=== PATIENT | male | born 1980 | race Caucasian/White ===

== ENCOUNTER 2018-02-12 19:14 | Emergency (ER) | payer OTHER ==
[~2018-02-12] VITALS: Ht 180.3 cm; Wt 108.5 kg
[2018-02-12 20:09] VITALS: BP 131/91; PULSE 64; RESP 18; TEMP 99; O2SAT 99
[2018-02-13 00:07] VITALS: BP 124/77; PULSE 53; RESP 18; TEMP 97.9; O2SAT 96
[2018-02-13 00:58] LABS: AUTOMATED NEUTROPHIL # 3.3 TH/MM3 (1.8-7.7); BASOPHIL % 0.6 % (0.0-2.0); EOSINOPHIL # 0.3 TH/MM3 (0-0.4); EOSINOPHIL % 3.5 % (0.0-4.0); HEMATOCRIT 44.8 % (39.0-51.0); LYMPH % 39.5 % (9.0-44.0); LYMPHOCYTE # 2.8 TH/MM3 (1.0-4.8); MEAN CELL VOLUME 84.9 FL (80.0-100.0); MEAN CORPUSCULAR HEMOGLOBIN 30.3 PG (27.0-34.0); MEAN CORPUSCULAR HGB CONC 35.7 % (32.0-36.0); MEAN PLATELET VOLUME 8.2 FL (7.0-11.0); MONO % 10.1 % (0.0-8.0); MONOCYTE # 0.7 TH/MM3 (0-0.9); NEUT % 46.3 % (16.0-70.0); PLATELET COUNT 223 TH/MM3 (150-450); RED BLOOD COUNT 5.28 MIL/MM3 (4.50-5.90); RED CELL DISTRIBUTION WIDTH 12.4 % (11.6-17.2); WHITE BLOOD COUNT 7.2 TH/MM3 (4.0-11.0)
[2018-02-13 01:07] LABS: INTERNATIONAL NORMALIZED RATIO 1.1 RATIO
[2018-02-13 01:08] VITALS: BP_SYST 108; BP_SYST 114; BP_SYST 123; BP_DIAS 60; BP_DIAS 69; BP_DIAS 76; RESP 16
--- NOTE | 2018-02-13 01:13 | RADRPT ---
EXAM DATE: 02/13/2018 12:48 AM EDT AGE/SEX: 37 years / Male INDICATIONS: Evaluate for free air, inferior chest pain. CLINICAL DATA: This is the patient's initial encounter. Patient reports that signs and symptoms have been present for 1 day and indicates a pain score of 2/10. MEDICAL/SURGICAL HISTORY: None. None. COMPARISON: No prior [place] exams available for comparison. FINDINGS: A single AP view of the chest demonstrates the lungs to be symmetrically aerated without evidence of mass, infiltrate or effusion. The cardiomediastinal contours are unremarkable. Osseous structures a re intact. CONCLUSION: No acute intrathoracic disease. No evidence of free air. Electronically signed by: Murphy Nguyen MD 02/13/2018 1:12 AM EDT
[2018-02-13 01:22] LABS: ALKALINE PHOSPHATASE 71 U/L (45-117); TOTAL BILIRUBIN ADULT 0.7 MG/DL (0.2-1.0); TOTAL PROTEIN 7.1 GM/DL (6.4-8.2); TROPONIN I LESS THAN 0.02 NG/ML (0.02-0.05)
[2018-02-13 01:26] LABS: ALBUMIN 3.9 GM/DL (3.4-5.0); ALT (GPT) 58 U/L (12-78); AST (GOT) 23 U/L (15-37); BICARBONATE 27.4 MEQ/L (21.0-32.0); BLOOD UREA NITROGEN 12 MG/DL (7-18); CALCIUM 8.7 MG/DL (8.5-10.1); CHLORIDE 104 MEQ/L (98-107); CREATININE 1.13 MG/DL (0.60-1.30); GLOMERULAR FILTRATION RATE 73 ML/MIN (>89); GLUCOSE,RANDOM 79 MG/DL (74-106); MAGNESIUM 2.1 MG/DL (1.5-2.5); SODIUM (NA) 142 MEQ/L (136-145)
[2018-02-13] MEDS ORDERED: KETOROLAC TROMETHAMINE 30 MG/ML (IVP) VIAL IV PUSH ONE (01:30)
[2018-02-13] MEDS ORDERED: SODIUM CHLOR 0.9% 1000 ML INJ 1,000 ML IV ONE ×2 (01:30→03:15)
[2018-02-13] MEDS ORDERED: IOHEXOL 350 MG/ML 10 ML VIAL (for RAD DIAG) IVCONTRAST ONE (01:49)
--- NOTE | 2018-02-13 01:55 | PD ---
HPI Chief Complaint: Abdominal Pain Time Seen by Provider: 00:09 Travel History International Travel<30 days: No Contact w/Intl Traveler<30days: No Traveled to known affect area: No History of Present Illness HPI The patient is a 37 year old male who presents to the [facility] emergency department with a history of abdominal pain that began 2 weeks ago. The patient reports that the abdominal pain has been a constant discomfort in the right lower quadrant of the abdomen with intermittent cramping sensations that come and go. He reports that the pain is worse with walking. He reports that he has been moving his bowels regularly. His last bowel movement was yesterday. He denies having any blood in his stool, black or tarry stools, mucus in his stool, or diarrhea. He denies having any fevers or chills. He denies having any nausea or vomiting. He denies having any changes in his appetite. He reports that he has had a strong urgency to urinate when he first gets up in the morning which is new for him. He denies having any dysuria, hematuria, or urinary frequency associated with this. He denies having any prior history of kidney stones. He was seen in urgent care center earlier today and was instructed to go to the emergency department for evaluation and treatment. He reports that he finally decided to get evaluated after he began to have increased fatigue this morning. He reports that he last took ibuprofen for pain at 8 AM. The patient reports that his only abdominal surgery was a laparoscopic hernia repair on the left groin. He denies having any lumps or bumps that he has noticed in his groin. On review of systems otherwise, the patient denies having any known recent fevers, cough or congestion, neck pain, chest pain, shortness of breath, or neurologic symptoms. [facility] Past Medical History Narrative Medical The patient's past medical history is significant for none. Medical History: Denies Significant Hx Past Surgical History Narrative Surgical The patient's past surgical history is significant for laparoscopic left hernia repair 2009 Abdominal Surgery: Yes (hernia repair) Social History Alcohol Use: No Tobacco Use: No Substance Use: No Allergies-Medications (Allergen,Severity, Reaction): Coded Allergies: bee venom protein (honey bee) (Verified Allergy, Unknown, Anaphylaxis, 02/12) PER PT HE WAS SEVERELY ALLERGIC IN CHILDHOOD BUT WAS "TESTED AGAIN" AND STATES THAT HE WAS NO LONGER ALLERGIC Reported Meds & Prescriptions Reported Meds & Active Scripts Active Levsin-SL (Hyoscyamine Sulfate) 0.125 Mg Subl 0.125 Mg SL Q6H PRN Review of Systems Except as stated in HPI: all other systems reviewed are Neg General / Constitutional: No: Fever Eyes: No: Visual changes HENT: No: Headaches Cardiovascular: No: Chest Pain or Discomfort Respiratory: No: Shortness of Breath Gastrointestinal: Positive: Abdominal Pain, No: Nausea, Vomiting, Diarrhea, Hematemesis, Hematochezia, Changes in Bowel Habits, Indigestion, Loss of Appetite Genitourinary: No: Dysuria Musculoskeletal: No: Pain Skin: No Rash Neurologic: No: Weakness, Focal Abnormalities, Change in Mentation, Slurred Speech, Sensory Disturbance Psychiatric: No: Depression Endocrine: No: Polydipsia Hematologic/Lymphatic: No: Easy Bruising Physical Exam Narrative General: The patient is a well-developed well-nourished female in no acute distress. Head and Neck exam: Head is normocephalic atraumatic. Eyes: EOMI, pupils are equal round and reactive to light. Nose: Midline septum with pink mucous membranes Mouth: Dentition unremarkable. Moist mucus membranes. Posterior oropharynx is not erythematous. No tonsillar hypertrophy. Uvula midline. Airway patent. Neck: No palpable lymphadenopathy. No nuchal rigidity. No thyromegaly. Cardiovascular: Regular rate and rhythm without murmurs, gallops, or rubs. No pulse deficit to the extremities on simultaneous auscultation and palpation of his radial artery. Lungs: Clear to auscultation bilaterally. No wheezes, rhonchi, or rales. Abdomen: Soft, with tenderness reported on palpation in bilateral lower quadrants of the abdomen worse in the right compared to the left. The patient has tenderness on palpation over McBurney's point no guarding, rebound, or rigidity. Normal bowel sounds are audible. Negative Gray sign. Extremities: No clubbing, cyanosis, or edema. 2+ pulses in all 4 extremities. No calf tenderness on palpation. Back: No spinous process tenderness to palpation. The patient reports having right- sided CVA tenderness on palpation. Neurologic Exam: Grossly nonfocal. Skin Exam: No rash noted. Intact skin that is warm and dry. Data Data Last Documented VS Vital Signs Date Time Temp Pulse Resp B/P (MAP) Pulse Ox O2 Delivery O2 Flow Rate FiO2 02/13/18 01:08 59 16 114/69 (84) 56 16 108/60 (76) 58 16 123/76 (92) 02/13/18 00:07 97.9 96 Room Air Orders Orders Electrocardiogram (02/13/18:31) Complete Blood Count With Diff (02/13/18:31) Comprehensive Metabolic Panel (02/13/18:31) Creatine Kinase (Cpk) (02/13/1831) Ckmb (Isoenzyme) Profile (02/13/18:31) Troponin I (02/13/18:31) Prothrombin Time / Inr (Pt) (02/13/18) Act Partial Throm Time (Ptt) (02/13/18) Lipase (02/13/18:) Urinalysis - C+S If Indicated (02/13/18:31) Magnesium (Mg) (02/13/18:31) Chest, Single Ap (02/13/18:31) Ct Abd/Pel W Iv Contrast(Rout) (02/13/18 00:31) Iv Access Insert/Monitor (02/13/18:31) Ecg Monitoring (02/13/18:31) Oximetry (02/13/18:31) Orthostatic Vital Signs (02/13/18 00:31) CKMB (02/13/18 00:40) CKMB% (02/13/18 00:40) Sodium Chlor 0.9% 1000 Ml Inj (Ns 1000 M (02/13/18 01:30) Ketorolac Inj (Toradol Inj) (02/13/18 01:30) Iohexol 350 Inj (Omnipaque 350 Inj) (02/13/18 01:49) Sodium Chlor 0.9% 1000 Ml Inj (Ns 1000 M (02/13/18 03:15) Labs Laboratory Tests Test 02/13/18 00:40 02/13/18 02:30 White Blood Count 7.2 TH/MM3 Red Blood Count 5.28 MIL/MM3 Hemoglobin 16.0 GM/DL Hematocrit 44.8 % Mean Corpuscular Volume 84.9 FL Mean Corpuscular Hemoglobin 30.3 PG Mean Corpuscular Hemoglobin Concent 35.7 % Red Cell Distribution Width 12.4 % Platelet Count 223 TH/MM3 Mean Platelet Volume 8.2 FL Neutrophils (%) (Auto) 46.3 % Lymphocytes (%) (Auto) 39.5 % Monocytes (%) (Auto) 10.1 % Eosinophils (%) (Auto) 3.5 % Basophils (%) (Auto) 0.6 % Neutrophils # (Auto) 3.3 TH/MM3 Lymphocytes # (Auto) 2.8 TH/MM3 Monocytes # (Auto) 0.7 TH/MM3 Eosinophils # (Auto) 0.3 TH/MM3 Basophils # (Auto) 0.0 TH/MM3 CBC Comment DIFF FINAL Differential Comment Prothrombin Time 11.0 SEC Prothromb Time International Ratio 1.1 RATIO Activated Partial Thromboplast Time 27.3 SEC Blood Urea Nitrogen 12 MG/DL Creatinine 1.13 MG/DL Random Glucose 79 MG/DL Total Protein 7.1 GM/DL Albumin 3.9 GM/DL Calcium Level 8.7 MG/DL Magnesium Level 2.1 MG/DL Alkaline Phosphatase 71 U/L Aspartate Amino Transf (AST/SGOT) 23 U/L Alanine Aminotransferase (ALT/SGPT) 58 U/L Total Bilirubin 0.7 MG/DL Sodium Level 142 MEQ/L Potassium Level 3.7 MEQ/L Chloride Level 104 MEQ/L Carbon Dioxide Level 27.4 MEQ/L Anion Gap 11 MEQ/L Estimat Glomerular Filtration Rate 73 ML/MIN Total Creatine Kinase 161 U/L Creatine Kinase MB 0.7 NG/ML Troponin I LESS THAN 0.02 NG/ML Lipase 147 U/L Urine Color YELLOW Urine Turbidity CLEAR Urine pH 6.5 Urine Specific [place] GREATER THAN 1.050 Urine Protein 30 mg/dL Urine Glucose (UA) NEG mg/dL Urine Ketones NEG mg/dL Urine Occult Blood NEG Urine Nitrite NEG Urine Bilirubin NEG Urine Urobilinogen LESS THAN 2.0 MG/DL Urine Leukocyte Esterase NEG Urine WBC 1 /hpf Microscopic Urinalysis Comment CULT NOT INDICATED MDM Medical Decision Making Medical Screen Exam Complete: Yes Emergency Medical Condition: Yes Medical Record Reviewed: Yes Differential Diagnosis Appendicitis, versus mesenteric adenitis, versus kidney stone, versus pyelonephritis Narrative Course During the course of the patient's emergency department visit, the patient's history, examination, and differential diagnosis were reviewed with the patient. The patient was placed on a playground monitor with oximetry and frequent blood pressure monitoring. The patient had IV access obtained and blood work sent for analysis. Patient had a EKG done on arrival that shows a sinus bradycardia heart rate of 58, QRS duration is [address] segment elevation is noted. The patient was initially provided normal saline 1 L IV fluid bolus, Toradol 15 mg IV The patient's laboratory studies were reviewed and remarkable for a white count of 7.2, hemoglobin 16, platelets 223 with 10.1 monocytes, CMP is remarkable for GFR of 73, cardiac enzymes within normal limits, lipase 147, PT PTT within normal limits. Urinalysis shows concentrated urine, otherwise no acute abnormality. The patient was given a second liter of normal saline IV fluids for hydration. Radiology studies were reviewed and remarkable for a chest x-ray that shows no acute intrathoracic disease, no evidence of free air. CT scan of the abdomen and pelvis shows an unremarkable examination, no acute abnormality, the appendix is unremarkable. The patient is resting comfortably and feels better, is alert and in no distress. The patient's results and examination findings were discussed with the patient. The repeat examination is unremarkable and benign. The history, exam, diagnostic testing, and current condition do not suggest any significant pathology to warrant further testing, continued ED treatment, admission, or surgical evaluation at this point. The vital signs have been stable. The patient does not have uncontrollable pain, intractable vomiting, or other significant symptoms. The patient's condition is stable and appropriate for discharge. The patient will pursue further outpatient evaluation with a primary care physician or other designated or consulting physician as indicated in the discharge instructions. The patient is instructed to report back to the emergency department immediately for reexamination in the mean time if he/ she develops any new or worsening signs or symptoms. The patient expressed understanding and was agreeable with this plan. Diagnosis Primary Impression: Abdominal pain Qualified Codes: R10.31 - Right lower quadrant pain Referrals: [facility] 3 days Patient Instructions: Abdominal Pain (ED), General Instructions Med/Other Pt SpecificInfo: Prescription(s) given Scripts Hyoscyamine Odt (Levsin-SL) 0.125 Mg Subl 0.125 MG SL Q6H Y for PAIN SCALE 1 TO 10, #12 TAB.SL 0 Refills Prov: Farida Galloway MD 02/13/18 Disposition: 01 DISCHARGE HOME Condition: Stable Farida Galloway MD Feb 13, 2018 01:55
--- NOTE | 2018-02-13 01:56 | RADRPT ---
EXAM DATE: 02/13/2018 1:50 AM EDT AGE/SEX: 37 years / Male INDICATIONS: Diffuse abdominal pain for 2 weeks. CLINICAL DATA: This is the patient's initial encounter. Patient reports that signs and symptoms have been present for 1 day and indicates a pain score of 5/10. MEDICAL/SURGICAL HISTORY: None. . Hernia repair. ORAL CONTRAST: No oral contrast ingested. RADIATION DOSE: 9.43 CTDI (mGy) COMPARISON: No prior [place] exams available for comparison. TECHNIQUE: Multiple contiguous axial images were obtained through the abdomen and pelvis following b olus infusion of 97 ml Omnipaque 350 (iohexol) nonionic water-soluble contrast as a single exam dos e. No oral contrast ingested. Using automated exposure control and adjustment of the mA and/or kV ac cording to patient size, the radiation dose was kept as low as reasonably achievable to obtain optima l diagnostic quality images. FINDINGS: Lower Lungs: The visualized lower lungs are clear. Liver: The liver has a homogeneous density without space-occupying lesion. There is no dilation of th e biliary tree. Gallbladder contracted. Spleen: Homogeneous density without enlargement. Pancreas: Unremarkable without mass or calcification. Kidneys: Normal in size and shape. No evidence of mass or hydronephrosis. Adrenal Glands: Unremarkable. Aorta: The aorta and proximal iliac vessels are grossly unremarkable without aneurysmal dilation. Bowel/Mesentery: The bowel loops are grossly unremarkable. The cecum and sigmoid colon have a normal configuration. The appendix is unremarkable. There is stool throughout the colon. No inflammatory ch anges are demonstrated. Abdominal Wall: Intact. Retroperitoneum: No evidence of adenopathy in the retrocrural, para-aortic, or deep pelvic regions. Bladder: Contours are smooth. No calcified stones. Reproductive Organs: No abnormal masses or calcifications seen. Inguinal: The inguinal region is unremarkable without evidence of adenopathy. Bony Structures: Unremarkable. CONCLUSION: 1. Unremarkable examination. Electronically signed by: Murphy Nguyen MD 02/13/2018 1:55 AM EDT
[2018-02-13 02:40] LABS: BILIRUBIN, URINE NEG (NEG); BLOOD, URINE NEG (NEG); GLUCOSE,URINE NEG (NEG); KETONE, URINE NEG (NEG); NITRITE,URINE NEG (NEG); PH, URINE 6.5 (5.0-8.5); URINE COLOR YELLOW (YELLW/STRAW); URINE LEUKOCYTE ESTERASE NEG (NEG)
[2018-02-13] MEDS ORDERED: LEVS0.124 SL (03:45)
--- NOTE | 2018-02-13 15:21 | EKG ---
Date Performed: 02/13/2018 Time Performed: 01:17:03 PTAGE: 37 years EKG: SINUS BRADYCARDIA BORDERLINE ECG NO PREVIOUS TRACING DOCTOR: Cintia Peres Interpretating Date/Time 02/13/2018 15:20:44
== END 2018-02-13 03:57 | disposition home or self-care (01) ==
LOC: NEPC 19:14
DX: R10.31 Right lower quadrant pain (principal); R00.1 Bradycardia, unspecified
CPT/HCPCS: 71045; 74177; 80053; 81001; 82550; 82552; 83690; 83735; 84484; 85025; 85610; 85730; 93005; 96361; 96374; 99285; J1885; J7030; Q9967